=== PATIENT | male | born 2000 | race Caucasian/White ===

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

== ENCOUNTER → 2019-06-09 | Outpatient (CLI) | payer OTHER ==
[2019-06-09 10:02] LABS: Basophils # (A) 0.1 k/uL (0-0.2); Basophils % (A) 1 %; Eosinophils # (A) 0.2 k/uL (0-0.7); Eosinophils % (A) 2 %; HCT 41.1 % (39.0-53.0); HGB 13.8 gm/dL (13.0-17.5); Lymphocytes # (A) 1.9 k/uL (1.0-4.8); Lymphocytes % (A) 28 %; MCH 27.5 pg (25.0-35.0); MCHC 33.6 g/dL (31.0-37.0); MCV 81.9 fL (80.0-100.0); Mean Platelet Volume 6.9; Monocytes # (A) 0.5 k/uL (0-1.0); Monocytes % (A) 7 %; Neutrophils % (A) 59 %; Platelet Count 263 k/uL (150-450); RBC 5.02 m/uL (4.30-5.90); RDW 14.2 % (11.5-15.5); WBC 6.8 k/uL (3.8-10.6)
[2019-06-09 17:02] LABS: Albumin 4.6 g/dL (3.80-4.90); Albumin/Globulin Ratio 2.42 (1.60-3.17); BUN/Creat Ratio 13.75 Ratio (12.00-20.00); Bilirubin, Conjugated 0.2 mg/dL (0.20-0.40); Bilirubin,Unconjugated 0.4 mg/dL; C Reactive Protein 1.1 mg/dL (0.0-0.8); Calcium 9.5 mg/dL (8.7-10.3); Chol/HDL Ratio 5.21; Globulin 1.9 g/dL (1.6-3.3); LDL Cholesterol,Calculated 68.2 mg/dL (0.0-131.0); Potassium 4.6 mmol/L (3.5-5.5); Total Bilirubin 0.6 mg/dL (0.3-1.2); Total Protein 6.5 g/dL (6.2-8.2); VLDL Calculation 49.8 mg/dL (5.00-40.00)
[2019-06-09 17:09] LABS: T4, Free (Free Thyroxine) 1.2 ng/dL (0.80-1.80)
[2019-06-09 17:19] LABS: Folate, Serum 13.6 ng/mL
[2019-06-09 18:14] LABS: Hemoglobin A1C 5.5 % (4.0-6.0)
== END | disposition home or self-care (01) ==
LOC: LABWHC1 09:16
PROVIDERS: ATTEND Clinical Nurse Specialist Psychiatric/Mental Health
DX: F32.9 Major depressive disorder, single episode, unspecified (principal); F90.9 Attention-deficit hyperactivity disorder, unspecified type
CPT/HCPCS: 36415; 80053; 80061; 82248; 82306; 82746; 83036; 84439; 84443; 84479; 85025; 86140

== ENCOUNTER 2019-07-28 23:11 | Emergency (ER) | payer OTHER ==
[2019-07-28 23:21] VITALS: BP 155/95; PULSE 104; RESP 20; TEMP 98.1
--- NOTE | 2019-07-28 23:50 | ED ---
General Adult HPI - General Chief complaint: Upper Respiratory Infection Stated complaint: URI Time Seen by Provider: 07/28/19 23:26 Source: patient, family, RN notes reviewed Mode of arrival: ambulatory Limitations: no limitations - History of Present Illness Initial comments: 19-year-old male presents to the emergency department for a chief complaint of cough and right ear pain. Patient has had a cough for about 5 days as well as the right ear pain. Ear pain has worsened. Patient has a history of asthma. Denies any shortness of breath at this time. Denies fevers or chills. Does admit to congestion. States he had a sore throat earlier in the week but that has since resolved.Patient has no other complaints at this time including shortness of breath, chest pain, abdominal pain, nausea or vomiting, headache, or visual changes. - Related Data Previous Rx's Medication Instructions Recorded Ibuprofen [Motrin] 600 mg PO Q8HR PRN #30 tab 09/29/17 Albuterol Inhaler [Ventolin Hfa 1 - 2 puff INHALATION Q6HR PRN #1 07/28/19 Inhaler] inhaler Amoxicillin/Potassium Clav 1 tab PO Q12HR #20 tab 07/28/19 [Augmentin 875-125 Tablet] predniSONE 50 mg PO DAILY #5 tablet 07/28/19 Allergies Allergy/AdvReac Type Severity Reaction Status Date / Time No Known Allergies Allergy Verified 07/28/19 23:21 Review of Systems ROS Statement: Those systems with pertinent positive or pertinent negative responses have been documented in the HPI. ROS Other: All systems not noted in ROS Statement are negative. Past Medical History Past Medical History: No Reported History Additional Past Medical History / Comment(s): ADHD History of Any Multi-Drug Resistant Organisms: None Reported Past Surgical History: Ear Surgery, Tonsillectomy Past Psychological History: Anxiety, Depression Smoking Status: Former smoker Past Alcohol Use History: Occasional Past Drug Use History: None Reported General Exam Limitations: no limitations General appearance: alert, in no apparent distress Head exam: Present: atraumatic, normocephalic, normal inspection Eye exam: Present: normal appearance, PERRL, EOMI. Absent: scleral icterus, conjunctival injection, periorbital swelling ENT exam: Present: normal exam, normal oropharynx, mucous membranes moist. Absent: TM's normal bilaterally (L Tympanic Membrane is erythematous but nonbulging. Right tympanic membrane is bulging and erythematous consistent with otitis media) Neck exam: Present: normal inspection, full ROM. Absent: tenderness, meningismus, lymphadenopathy Respiratory exam: Present: normal lung sounds bilaterally. Absent: respiratory distress, wheezes, rales, rhonchi, stridor Cardiovascular Exam: Present: regular rate, normal rhythm, normal heart sounds. Absent: systolic murmur, diastolic murmur, rubs, gallop, clicks GI/Abdominal exam: Present: soft, normal bowel sounds. Absent: distended, tenderness, guarding, rebound, rigid Neurological exam: Present: alert Course Vital Signs 07/28/19 23:17 Temperature 98.1 F Pulse Rate 104 H Respiratory 20 Rate Blood Pressure 155/95 O2 Sat by Pulse 97 Oximetry Medical Decision Making - Medical Decision Making 19-year-old male presents for cough and right ear pain. This has been ongoing for about 5 days. Vitals are stable. On examination patient does have an erythematous right tympanic membrane consistent with otitis media. Lungs are clear to auscultation bilaterally. Given patient will be put on antibiotics for otitis media chest x-ray was not obtained. However patient does have a history of asthma. He has no wheezing at this time. However he will be started on st eroids as well as given an inhaler as he does not have one at home. He will follow up with primary care in 1-2 days. He will return here if he has any worsening symptoms or develops fevers. Disposition Clinical Impression: Otitis media, Cough Disposition: HOME SELF-CARE Condition: Good Instructions (If sedation given, give patient instructions): Upper Respiratory Infection (ED) Additional Instructions: Please take medications as directed. These were sent to [facility] pharmacy. Please follow-up with primary care in 1-2 days. If you're having any worsening symptoms or develop fevers return to the emergency department. Prescriptions: Amoxicillin/Potassium Clav [Augmentin 875-125 Tablet] 1 tab PO Q12HR #20 tab predniSONE 50 mg PO DAILY #5 tablet Albuterol Inhaler [Ventolin Hfa Inhaler] 1 - 2 puff INHALATION Q6HR PRN #1 inh aler PRN Reason: Shortness Of Breath Is patient prescribed a controlled substance at d/c from ED?: No Referrals: Sukhdeep Nayak Jr, [Primary Care Provider] - 1-2 days Time of Disposition: 23:48
== END 2019-07-29 | disposition home or self-care (01) ==
LOC: EC 23:11
DX: H66.91 Otitis media, unspecified, right ear (principal); R05 Cough; Z87.891 Personal history of nicotine dependence
CPT/HCPCS: 99282

== ENCOUNTER → 2022-01-27 | Outpatient (CLI) | payer OTHER ==
--- NOTE | 2022-01-27 12:56 | US ---
EXAMINATION TYPE: US abdomen limited DATE OF EXAM: 01/27/2022 COMPARISON: NONE CLINICAL HISTORY: 21-year-old male R10.32 LEFT LOWER QUADRANT PAIN. Abdomen pain after eating x coupl e weeks TECHNIQUE: Multiple sonographic images of the right upper quadrant are obtained. FINDINGS: EXAM MEASUREMENTS: Liver Length: 17.4 cm Gallbladder Wall: 0.2 cm CBD: 0.4 cm Right Kidney: 10.9 x 5.3 x 5.0 cm University Lecturer notes:Difficult and limited study due to patient body habitus Pancreas: partially obscured by overlying midline bowel gas Liver: measures in upper limits of normal, mildly attenuating. No focal lesion seen. Gallbladder: wnl Evidence for sonographic Salvador's sign: no CBD: visualized portions wnl, limited by overlying bowel gas Right Kidney: wnl IMPRESSION: 1. Borderline hepatomegaly at 17.4 cm with mild hepatic steatosis. Correlate with LFTs, lipid profile , and patient risk factors. 2. No gallstones or biliary ductal dilatation.
== END | disposition home or self-care (01) ==
LOC: RADUSWWP 06:52
PROVIDERS: ATTEND Family Medicine
DX: K76.0 Fatty (change of) liver, not elsewhere classified (principal); R16.0 Hepatomegaly, not elsewhere classified
CPT/HCPCS: 76705